=== PATIENT | male | born 1945 | race Hispanic/Latino ===

== ENCOUNTER 2018-01-05 12:32 | Inpatient (IN) | payer MEDICARE ==
[~2018-01-05] VITALS: Ht 172.7 cm; Wt 78.9 kg
[~2018-01-05 12:32] MED LIST: CETI10TA57 PO; PRED20TA3 PO
[2018-01-05] MEDS ORDERED: SODIUM CHLORIDE 0.9% 100 ML IV ONE (14:10)
[2018-01-05] MEDS ORDERED: CEFTRIAXONE SODIUM 1 GM ONE (14:10)
[2018-01-05 14:12] LABS: BASOPHILS % (AUTO) 0.8 % (0.0-5.0); HEMATOCRIT 33.2 % (42-54); LYMPHOCYTES % (AUTO) 7.7 % (21.0-51.0); MEAN CORPUSCULAR HEMOGLOBIN 31.8 pg (27.0-33.0); MEAN CORPUSCULAR HGB CONC 35.7 g/dL (32.0-36.0); MONOCYTES % (AUTO) 4.2 % (3.0-13.0); NEUTROPHILS % (AUTO) 87.3 % (40.0-77.0); NUCLEATED RED BLOOD CELLS 0.1 % (0.0-0.19); PLATELET COUNT (AUTO) 177 K/uL (130-400); RED BLOOD CELL COUNT(AUTO) 3.73 MIL/uL (4.50-6.20); RED CELL DISTRIBUTION WIDTH 19.3 % (11.0-15.5); WHITE BLOOD COUNT (AUTO) 2.3 K/uL (4.8-10.8)
[2018-01-05 14:23] LABS: ALBUMIN 3.2 g/dL (3.5-5.0); BILIRUBIN,TOTAL 2.6 mg/dL (0.2-1.0); CREATININE 0.6 mg/dL (0.5-1.5); POTASSIUM 4.4 mmol/L (3.5-5.1); TOTAL PROTEIN, SERUM 7.1 g/dL (6.0-8.3)
[2018-01-05] MEDS ORDERED: INSULIN LISPRO 100 UNIT/ML 3ML SQ ONE (14:38)
[2018-01-05] MEDS ORDERED: CLINDAMYCIN 600 MG/D5% WATER 50 ML IV ONE (14:50)
[2018-01-05] MEDS ORDERED: GLUCAGON 1MG KIT 1 MG ML IM PRN ×2 (15:00→17:15)
[2018-01-05] MEDS ORDERED: DEXTROSE 50%-WATER 50 ML DISP.SYRIN IV PRN ×2 (15:00→17:15)
[2018-01-05 15:06] LABS: BAND NEUTROPHILS % (MANUAL) 4 % (0-2); LYMPHOCYTES % (MANUAL) 4 % (22-44); MAN.DIFF COMMENT-IMPRESSION MANUAL DIFFERENTIAL; MONOCYTES % (MANUAL) 2 % (2-9); SEGMENTED NEUTROPHILS % 90 % (40-70)
[2018-01-05 15:07] LABS: PLATELET MORPHOLOGY COMMENT ADEQUATE
[2018-01-05] MEDS ORDERED: HUMALOG PO SS1 SQ SCH (16:30)
[2018-01-05 16:56] VITALS: BP 109/59
[2018-01-05] MEDS ORDERED: ACETAMINOPHEN 325 MG TAB PO PRN (17:15)
[2018-01-05] MEDS ORDERED: CLONIDINE HCL 0.1 MG TABLET PO PRN (17:15)
[2018-01-05 19:00] VITALS: BP 117/62
[2018-01-05] MEDS ORDERED: INSULIN R PO SS1 SQ SCH (21:00)
[2018-01-05] MEDS: FAMOTIDINE 20MG TAB 20 MG TAB PO SCH (22:02)
[2018-01-05] MEDS: CLINDAMYCIN 600 MG/D5% WATER 50 ML IV SCH (22:05)
[2018-01-05 23:00] VITALS: BP 109/58
[2018-01-06] VITALS (7 sets, daily range): BP systolic 98–128; BP diastolic 53–64
[2018-01-06 05:46] LABS: HEMATOCRIT 30.9 % (42-54); MEAN CORPUSCULAR HEMOGLOBIN 31.6 pg (27.0-33.0); MEAN CORPUSCULAR HGB CONC 35.8 g/dL (32.0-36.0); MEAN CORPUSCULAR VOLUME 88.3 fL (79-99); NUCLEATED RED BLOOD CELLS 0.1 % (0.0-0.19); PLATELET COUNT (AUTO) 182 K/uL (130-400); RED CELL DISTRIBUTION WIDTH 19.5 % (11.0-15.5); WHITE BLOOD COUNT (AUTO) 2.4 K/uL (4.8-10.8)
[2018-01-06 05:57] LABS: BAND NEUTROPHILS % (MANUAL) 8 % (0-2); LYMPHOCYTES % (MANUAL) 24 % (22-44); SEGMENTED NEUTROPHILS % 68 % (40-70)
[2018-01-06 05:58] LABS: ALBUMIN 2.6 g/dL (3.5-5.0); BILIRUBIN,DIRECT 0.3 mg/dL (0.0-0.3); BILIRUBIN,TOTAL 1.4 mg/dL (0.2-1.0); CREATININE 0.6 mg/dL (0.5-1.5); MAN.DIFF COMMENT-IMPRESSION MANUAL DIFFERENTIAL; PLATELET MORPHOLOGY COMMENT ADEQUATE; POTASSIUM 4.8 mmol/L (3.5-5.1); TOTAL PROTEIN, SERUM 6.2 g/dL (6.0-8.3)
[2018-01-06] MEDS: INSULIN LISPRO 100 UNIT/ML 3ML SQ SCH ×2 (08:20→16:48)
[2018-01-06] MEDS: FAMOTIDINE 20MG TAB 20 MG TAB PO SCH ×2 (10:37→22:20)
[2018-01-06] MEDS: CEFTRIAXONE SODIUM 1 GM IVP SCH (10:37)
[2018-01-06] MEDS: CLINDAMYCIN 600 MG/D5% WATER 50 ML IV SCH ×2 (10:37→22:20)
[2018-01-07 03:00] VITALS: BP 107/60
[2018-01-07 07:00] VITALS: BP 108/66
[2018-01-07] MEDS: INSULIN LISPRO 100 UNIT/ML 3ML SQ SCH ×2 (08:42→17:27)
[2018-01-07 08:49] LABS: HEMATOCRIT 34.3 % (42-54); MEAN CORPUSCULAR HEMOGLOBIN 29.6 pg (27.0-33.0); MEAN CORPUSCULAR HGB CONC 34.8 g/dL (32.0-36.0); NUCLEATED RED BLOOD CELLS 0.3 % (0.0-0.19); PLATELET COUNT (AUTO) 186 K/uL (130-400); RED BLOOD CELL COUNT(AUTO) 4.03 MIL/uL (4.50-6.20); RED CELL DISTRIBUTION WIDTH 19.2 % (11.0-15.5); WHITE BLOOD COUNT (AUTO) 1.7 K/uL (4.8-10.8)
[2018-01-07 09:05] LABS: INR 0.95 (0.85-1.15); PARTIAL THROMBOPLASTIN TIME 26.6 SEC (26.3-35.5)
[2018-01-07 09:08] LABS: ALBUMIN 2.9 g/dL (3.5-5.0); BILIRUBIN,TOTAL 1.5 mg/dL (0.2-1.0); CREATININE 0.6 mg/dL (0.5-1.5); POTASSIUM 4.4 mmol/L (3.5-5.1); TOTAL PROTEIN, SERUM 6.5 g/dL (6.0-8.3)
[2018-01-07] MEDS: FAMOTIDINE 20MG TAB 20 MG TAB PO SCH ×2 (09:42→21:45)
[2018-01-07] MEDS: CEFTRIAXONE SODIUM 1 GM IVP SCH (09:43)
[2018-01-07] MEDS: CLINDAMYCIN 600 MG/D5% WATER 50 ML IV SCH ×2 (09:49→21:45)
[2018-01-07 11:00] VITALS: BP 107/59
[2018-01-07 15:59] VITALS: BP 118/66
[2018-01-07 20:00] VITALS: BP 113/57
[2018-01-07 23:43] VITALS: BP 105/53
[2018-01-08 04:00] VITALS: BP 99/63
[2018-01-08 04:50] LABS: HEMATOCRIT 30.1 % (42-54); MEAN CORPUSCULAR HEMOGLOBIN 31.4 pg (27.0-33.0); MEAN CORPUSCULAR HGB CONC 35.8 g/dL (32.0-36.0); MEAN CORPUSCULAR VOLUME 87.8 fL (79-99); NUCLEATED RED BLOOD CELLS 0.1 % (0.0-0.19); PLATELET COUNT (AUTO) 199 K/uL (130-400); RED BLOOD CELL COUNT(AUTO) 3.42 MIL/uL (4.50-6.20); RED CELL DISTRIBUTION WIDTH 18.4 % (11.0-15.5); WHITE BLOOD COUNT (AUTO) 1.8 K/uL (4.8-10.8)
[2018-01-08 05:11] LABS: ALBUMIN 2.7 g/dL (3.5-5.0); BILIRUBIN,TOTAL 1.3 mg/dL (0.2-1.0); CREATININE 0.6 mg/dL (0.5-1.5); POTASSIUM 4.1 mmol/L (3.5-5.1); TOTAL PROTEIN, SERUM 5.9 g/dL (6.0-8.3)
[2018-01-08] MEDS: INSULIN LISPRO 100 UNIT/ML 3ML SQ SCH ×2 (06:53→18:07)
[2018-01-08 07:00] VITALS: BP 118/57
[2018-01-08] MEDS: CEFTRIAXONE SODIUM 1 GM IVP SCH (10:11)
[2018-01-08] MEDS: FAMOTIDINE 20MG TAB 20 MG TAB PO SCH ×2 (10:11→21:51)
[2018-01-08] MEDS: CLINDAMYCIN 600 MG/D5% WATER 50 ML IV SCH ×2 (10:11→21:51)
[2018-01-08 11:00] VITALS: BP 98/52
[2018-01-08 16:00] VITALS: BP 111/60
[2018-01-08] MEDS ORDERED: INSULIN LISPRO 100 UNIT/ML 3ML SQ ONE (18:05)
[2018-01-08 19:40] VITALS: BP 119/63
[2018-01-08] MEDS: NITROGLYCERIN 1GM/1 INCH PACKET TD SCH (21:52)
[2018-01-08 23:55] VITALS: BP 99/54
[2018-01-09 03:20] VITALS: BP 109/61
[2018-01-09] MEDS ORDERED: VANCOMYCIN PROTOCOL PER PHARMACY IV SCH (06:45)
[2018-01-09 07:00] VITALS: BP 113/64
[2018-01-09] MEDS: INSULIN LISPRO 100 UNIT/ML 3ML SQ SCH ×2 (07:09→17:25)
[2018-01-09] MEDS ORDERED: COMPOUND IV REFRIGERATED 1 EACH IVSOLN MISC PRN (07:30)
[2018-01-09] MEDS: VANCOMYCIN 1.5 GM in SODIUM CHLORIDE 0.9% 250 ML IV SCH (09:54)
[2018-01-09] MEDS: NITROGLYCERIN 1GM/1 INCH PACKET TD SCH ×2 (09:55→22:59)
[2018-01-09] MEDS: FAMOTIDINE 20MG TAB 20 MG TAB PO SCH ×2 (09:55→22:58)
[2018-01-09] MEDS: CEFTRIAXONE SODIUM 1 GM IVP SCH (09:55)
[2018-01-09] MEDS ORDERED: VANCOMYCIN 1GM+NS 250ML 250 ML IV ONE (10:00)
[2018-01-09 11:00] VITALS: BP_SYST 109
[2018-01-09 16:00] VITALS: BP 112/59
[2018-01-09 19:00] VITALS: BP 119/61
[2018-01-09] MEDS: VANCOMYCIN 1GM+NS 250ML 250 ML IV SCH (22:58)
[2018-01-09 23:00] VITALS: BP 114/59
[2018-01-10 03:00] VITALS: BP 115/62
[2018-01-10] MEDS: INSULIN LISPRO 100 UNIT/ML 3ML SQ SCH ×2 (06:26→17:57)
[2018-01-10 07:30] VITALS: BP 113/60
[2018-01-10] MEDS: VANCOMYCIN 1GM+NS 250ML 250 ML IV SCH ×2 (08:32→22:35)
[2018-01-10] MEDS: FAMOTIDINE 20MG TAB 20 MG TAB PO SCH ×2 (08:33→22:35)
[2018-01-10] MEDS: NITROGLYCERIN 1GM/1 INCH PACKET TD SCH ×2 (08:34→22:36)
[2018-01-10] MEDS: CEFTRIAXONE SODIUM 1 GM IVP SCH (08:34)
[2018-01-10] MEDS: VANCOMYCIN 1.5 GM in SODIUM CHLORIDE 0.9% 250 ML IV SCH (08:49)
[2018-01-10 09:09] LABS: HEMATOCRIT 28.8 % (42-54); MEAN CORPUSCULAR HEMOGLOBIN 31.1 pg (27.0-33.0); MEAN CORPUSCULAR HGB CONC 36.1 g/dL (32.0-36.0); NUCLEATED RED BLOOD CELLS 0.2 % (0.0-0.19); PLATELET COUNT (AUTO) 184 K/uL (130-400); RED BLOOD CELL COUNT(AUTO) 3.35 MIL/uL (4.50-6.20); RED CELL DISTRIBUTION WIDTH 19.1 % (11.0-15.5); WHITE BLOOD COUNT (AUTO) 1.4 K/uL (4.8-10.8)
[2018-01-10 10:13] LABS: CREATININE 0.6 mg/dL (0.5-1.5); POTASSIUM 3.9 mmol/L (3.5-5.1)
[2018-01-10 11:00] VITALS: BP 106/58
[2018-01-10 16:00] VITALS: BP 114/58
[2018-01-10 19:00] VITALS: BP 121/56
[2018-01-10 23:00] VITALS: BP 113/58
[2018-01-11 03:00] VITALS: BP 104/59
[2018-01-11] MEDS: INSULIN LISPRO 100 UNIT/ML 3ML SQ SCH (06:41)
[2018-01-11 09:12] VITALS: BP 108/54
[2018-01-11] MEDS: FAMOTIDINE 20MG TAB 20 MG TAB PO SCH (10:09)
[2018-01-11] MEDS: CEFTRIAXONE SODIUM 1 GM IVP SCH (10:09)
[2018-01-11] MEDS: NITROGLYCERIN 1GM/1 INCH PACKET TD SCH (10:10)
[2018-01-11] MEDS: VANCOMYCIN 1GM+NS 250ML 250 ML IV SCH (10:17)
[2018-01-11 12:00] VITALS: BP 110/62
== END 2018-01-11 15:30 | disposition short-term general hospital (02) | DRG 464 ==
LOC: EDH 12:32 → EDHIP 13:15 → 3CH 16:44
PROVIDERS: ADMIT Internal Medicine; ATTEND Internal Medicine
PROC: 0JBQ0ZZ Excision of Right Foot Subcutaneous Tissue and Fascia, Open Approach (ICD-10-PCS; principal; 2018-01-05)
PROC: 0S9M0ZZ Drainage of Right Metatarsal-Phalangeal Joint, Open Approach (ICD-10-PCS; 2018-01-05)
PROC: 02HV33Z Insertion of Infusion Device into Superior Vena Cava, Percutaneous Approach (ICD-10-PCS; 2018-01-08)
DX: S93.124A Dislocation of metatarsophalangeal joint of right lesser toe(s), initial encounter (principal); D61.818 Other pancytopenia; D89.89 Other specified disorders involving the immune mechanism, not elsewhere classified; E11.621 Type 2 diabetes mellitus with foot ulcer; D59.1 Other autoimmune hemolytic anemias; E11.69 Type 2 diabetes mellitus with other specified complication; L03.115 Cellulitis of right lower limb; M86.9 Osteomyelitis, unspecified; L02.611 Cutaneous abscess of right foot; L03.811 Cellulitis of head [any part, except face]; E11.51 Type 2 diabetes mellitus with diabetic peripheral angiopathy without gangrene; Y99.8 Other external cause status; B95.62 Methicillin resistant Staphylococcus aureus infection as the cause of diseases classified elsewhere; F55.3 Abuse of steroids or hormones; J44.9 Chronic obstructive pulmonary disease, unspecified; M06.9 Rheumatoid arthritis, unspecified; Z79.52 Long term (current) use of systemic steroids; M21.619 Bunion of unspecified foot; L97.529 Non-pressure chronic ulcer of other part of left foot with unspecified severity; I10 Essential (primary) hypertension; E78.5 Hyperlipidemia, unspecified; M19.90 Unspecified osteoarthritis, unspecified site; D73.1 Hypersplenism; L97.519 Non-pressure chronic ulcer of other part of right foot with unspecified severity; M05.00 Felty's syndrome, unspecified site; X58.XXXA Exposure to other specified factors, initial encounter; Y93.89 Activity, other specified; Y92.89 Other specified places as the place of occurrence of the external cause
CPT/HCPCS: 10060; 36415; 71045; 73630; 73718; 80048; 80053; 80076; 80202; 82947; 82948; 85007; 85025; 85027; 85610; 85730; 87070; 87076; 93925; A4218; C1894; J0696; J1815; J3370; J3490; J7030